=== PATIENT | female | born 1935 | race Caucasian/White ===

== ENCOUNTER 2017-05-06 14:57 | Emergency (ER) | payer OTHER ==
[~2017-05-06] VITALS: Ht 160 cm; Wt 53.1 kg
[2017-05-06 14:57] VITALS: BP_SYST 173
[2017-05-06] MEDS ORDERED: KETOROLAC TROMETHAMINE 30 MG VIAL IM ONE (15:45)
[2017-05-06] MEDS ORDERED: IBUPROFEN 600 MG TABLET PO ONE (16:15)
[2017-05-06 16:23] VITALS: BP_SYST 163
== END 2017-05-06 16:23 | disposition home or self-care (01) ==
LOC: SED 15:54
DX: S20.219A Contusion of unspecified front wall of thorax, initial encounter (principal); I10 Essential (primary) hypertension; Z91.041 Radiographic dye allergy status; V49.49XA Driver injured in collision with other motor vehicles in traffic accident, initial encounter; Y93.89 Activity, other specified; Y92.481 Parking lot as the place of occurrence of the external cause; Y99.8 Other external cause status
CPT/HCPCS: 71010; 99283; J1885

== ENCOUNTER 2019-12-18 09:53 | Emergency (ER) | payer OTHER ==
[~2019-12-18] VITALS: Ht 160 cm; Wt 42.2 kg
[2019-12-18 10:01] VITALS: BP_SYST 173
[2019-12-18] MEDS ORDERED: NACL 0.9% 1,000 ML IV ONE (10:21)
[2019-12-18] MEDS ORDERED: ONDANSETRON HCL 4 MG/2 ML VIAL IVP ONE (10:30)
[2019-12-18] MEDS ORDERED: MORPHINE 4 MG/ML INJ. SYRINGE IVP ONE (10:30)
[2019-12-18 11:08] LABS: BASOPHILS # (AUTO) 0.1 K/uL (0.0-0.2); BASOPHILS % (AUTO) 0.5 % (0.0-2.0); HEMATOCRIT 40.9 % (36-48); HEMOGLOBIN 13.5 g/dL (12.0-16.0); LYMPHOCYTES # (AUTO) 1.4 K/uL (1.0-5.5); LYMPHOCYTES % (AUTO) 12.5 % (20.5-51.5); MEAN CORPUSCULAR HEMOGLOBIN 30 pg (27-31); MEAN CORPUSCULAR HGB CONC 33 % (32-36); MEAN CORPUSCULAR VOLUME 91 fL (79.0-98.0); MONOCYTES # (AUTO) 0.7 K/uL (0.0-1.0); MONOCYTES % (AUTO) 5.9 % (1.7-9.3); NEUTROPHILS % (AUTO) 81.1 % (40.0-70.0); PLATELET COUNT (AUTO) 338 K/uL (130-430); RED CELL DISTRIBUTION WIDTH 13.4 % (9.0-15.0); WHITE BLOOD COUNT (AUTO) 11.1 K/uL (4.8-10.8)
[2019-12-18 11:22] LABS: PROTHROMBIN TIME 9.8 SECS (9.5-12.5)
[2019-12-18 11:41] LABS: ALANINE AMINOTRANSFERASE 27 U/L (12-78); ALBUMIN 4.2 g/dL (3.4-4.8); ANION GAP 6 (5-15); ASPARTATE AMINOTRANSFERASE 27 U/L (10-37); CHLORIDE 97 mmol/L (98-107); CREATININE 0.86 mg/dL (0.55-1.30); GLUCOSE 96 mg/dL (70-99); LIPASE 142 U/L (73-393); SODIUM SERUM 131 mmol/L (136-145); TOTAL BILIRUBIN 0.6 mg/dL (0.0-1.0); UREA NITROGEN, BLOOD 22 mg/dL (8-21)
[2019-12-18 11:49] LABS: POTASSIUM 4.5 mmol/L (3.5-5.1)
[2019-12-18 11:55] LABS: ERYTHROCYTE SEDIMENTATION RATE 12 MM/HR (0-20)
[2019-12-18 14:00] VITALS: BP_SYST 126
== END 2019-12-18 13:55 | disposition home or self-care (01) ==
LOC: SED 09:53
DX: G89.29 Other chronic pain (principal); M25.551 Pain in right hip; I10 Essential (primary) hypertension; Z96.641 Presence of right artificial hip joint; Z88.8 Allergy status to other drugs, medicaments and biological substances
CPT/HCPCS: 36415; 71045; 73552; 80053; 82550; 83605; 83690; 84484; 85025; 85610; 85651; 85730; 87040; 93971; 96374; 96375; 99284; J2270; J2405; J7030

== ENCOUNTER 2022-01-05 16:58 | Emergency (ER) | payer OTHER, SELFPAY ==
[~2022-01-05] VITALS: Ht 162.6 cm; Wt 49.9 kg
[2022-01-05] MEDS ORDERED: IBUP-1969 PO (19:11)
[2022-01-05] MEDS ORDERED: DIPH-TET-PERTUS Vaccine 0.5 ML VIAL (ADACEL) I.M. ONE (19:15)
[2022-01-05 19:27] VITALS: BP_SYST 160
== END 2022-01-05 19:27 | disposition home or self-care (01) ==
LOC: SED 16:58
DX: S01.01XA Laceration without foreign body of scalp, initial encounter (principal); I10 Essential (primary) hypertension; Z91.041 Radiographic dye allergy status; W18.30XA Fall on same level, unspecified, initial encounter; Y93.89 Activity, other specified; Y92.89 Other specified places as the place of occurrence of the external cause; Y99.8 Other external cause status
CPT/HCPCS: 70450-TC; 76376; 90715; 99283; 99284

== ENCOUNTER 2022-01-26 12:17 | Emergency (ER) | payer OTHER, SELFPAY ==
[~2022-01-26] VITALS: Ht 165.1 cm; Wt 47.6 kg
[~2022-01-26 12:17] MED LIST: IBUP-1969 PO
[2022-01-26 12:40] VITALS: BP_SYST 162
[2022-01-26] MEDS ORDERED: IBUP-2018 PO (15:18)
[2022-01-26] MEDS ORDERED: HYDR-3917 PO (15:18)
[2022-01-26 16:31] VITALS: BP_SYST 119
== END 2022-01-26 16:31 | disposition home or self-care (01) ==
LOC: SED 12:17
DX: S70.01XA Contusion of right hip, initial encounter (principal); S50.01XA Contusion of right elbow, initial encounter; S30.0XXA Contusion of lower back and pelvis, initial encounter; F03.90 Unspecified dementia, unspecified severity, without behavioral disturbance, psychotic disturbance, mood disturbance, and anxiety; W18.39XA Other fall on same level, initial encounter; Y93.89 Activity, other specified; Y92.89 Other specified places as the place of occurrence of the external cause; Y99.8 Other external cause status
CPT/HCPCS: 72131; 72170-TC; 73502; 76376; 99284